=== PATIENT | female | born 1980 | race African-American/Black ===

== ENCOUNTER 2019-10-27 17:57 | Emergency (ER) | payer MEDICAID ==
[~2019-10-27] VITALS: Ht 175.3 cm; Wt 79.4 kg
[2019-10-27 19:41] VITALS: BP 102/55
== END 2019-10-27 19:41 | disposition home or self-care (01) ==
LOC: ED 17:57 → EDBD 17:57 → ED 19:41
DX: N39.0 Urinary tract infection, site not specified (principal); F17.210 Nicotine dependence, cigarettes, uncomplicated
CPT/HCPCS: 99406

== ENCOUNTER 2019-10-28 06:14 | Emergency (ER) | payer MEDICAID ==
[~2019-10-28] VITALS: Ht 177.8 cm; Wt 86.2 kg
[2019-10-28 06:17] VITALS: Ht 177.8 cm; Wt 86.2 kg
[2019-10-28 08:00] VITALS: BP 111/62
== END 2019-10-28 07:55 | disposition home or self-care (01) ==
LOC: ED 06:14 → EDBD 06:14 → ED 07:55
DX: G89.29 Other chronic pain (principal); F17.210 Nicotine dependence, cigarettes, uncomplicated; Z95.0 Presence of cardiac pacemaker; Z98.890 Other specified postprocedural states
CPT/HCPCS: 99406

== ENCOUNTER 2019-10-29 07:00 | Emergency (ER) | payer MEDICAID ==
[~2019-10-29] VITALS: Ht 177.8 cm; Wt 86.2 kg
[2019-10-29 07:05] VITALS: Ht 177.8 cm; Wt 86.2 kg
[2019-10-29 08:52] VITALS: BP 111/76
== END 2019-10-29 08:52 | disposition home or self-care (01) ==
LOC: ED 07:00
DX: G89.29 Other chronic pain (principal); M79.604 Pain in right leg; M79.605 Pain in left leg; F31.9 Bipolar disorder, unspecified; F17.210 Nicotine dependence, cigarettes, uncomplicated; Z59.0 Homelessness; Z98.890 Other specified postprocedural states
CPT/HCPCS: 99406

== ENCOUNTER 2019-11-03 21:15 | Emergency (ER) | payer MEDICAID ==
[~2019-11-03] VITALS: Ht 177.8 cm; Wt 88.5 kg
[2019-11-03 21:19] VITALS: Ht 177.8 cm; Wt 88.5 kg
[2019-11-03 22:08] LABS: BASOPHIL % 0.4 % (0-2); PLATELET COUNT 187 x10^3mcL (130-400); RED CELL DISTRIBUTION WIDTH 15.1 % (11.5-14.5)
[2019-11-03 22:17] LABS: CALCIUM 8.1 mg/dL (8.5-10.1); CARBON DIOXIDE 29.8 mmol/L (21-32); CHLORIDE SERUM 105 mmol/L (98-107); CREATININE SERUM 0.8 mg/dL (0.6-1.0); GFR1 > 60 mL/min; GLUCOSE SERUM 97 mg/dL (74-106); POTASSIUM SERUM 3.8 mmol/L (3.5-5.1); SODIUM SERUM 139 mmol/L (136-145)
[2019-11-03 22:23] LABS: ALKALINE PHOSPHATASE 38 U/L (46-116); ALT/SGPT 18 U/L (14-59); AST/SGOT 14 U/L (15-37); BILIRUBIN TOTAL 0.7 mg/dL (0.20-1.00)
[2019-11-03 22:24] LABS: ALBUMIN 3.3 g/dL (3.4-5.0); TOTAL PROTEIN, SERUM 6.1 g/dL (6.4-8.2)
[2019-11-03 23:45] VITALS: BP 98/48
== END 2019-11-04 00:10 | disposition home or self-care (01) ==
LOC: ED 21:15
PROVIDERS: Student in an Organized Health Care Education/Training Program
DX: R60.9 Edema, unspecified (principal); M79.605 Pain in left leg; M79.604 Pain in right leg; D64.9 Anemia, unspecified
CPT/HCPCS: 36415; 83880